=== PATIENT | male | born 1995 | race Caucasian/White ===

== ENCOUNTER 2019-12-04 12:08 | Emergency (ER) | payer SELFPAY ==
[2019-12-04 12:16] VITALS: BP 129/76; PULSE 60; TEMP 37; O2SAT 99
--- NOTE | 2019-12-04 12:28 | ED.GENADUL_ITS ---
Discharge Plan Disposition Patient Disposition: HOME Condition: Stable Discharge Details Chief Complaint: Laceration Clinical Impression: Finger laceration, Crush injury Primary Care Provider: Nanci Meza V ED Provider: Chelsey Sutherland Home Meds and New Rx's Prescriptions: New cephalexin [Keflex] 500 mg capsule 500 mg PO TID 5 Days Qty: 15 RF: 0 Discharge Instructions Instructions: Finger Laceration (ED) Additional Instructions: Take the antibiotics until finished. Keep wound clean and dry. Cover wound with bandage if risk of contamination. Otherwise you can keep the wound open to air if resting at home to allow edges to dry and heal. Return to the emergency department in 7 days for suture removal. Return to the emergency department anytime if you develop any increased pain, redness, swelling, fever, chills or body aches. Discharge Data Discharge Date/Time-TO BE ENTERED AT DEPARTURE: 12/04/19 14:43 Discharge Physician: Chelsey Sutherland Medical Decision Making 24-year-old male presents with left hand crush injury to left second through fifth fingers after caught in machine belt while at work just prior to arrival. Patient tearful and appears very uncomfortable. He has superficial and small deep lacerations to left second through fifth fingers. No bony deformity. Neurovascular intact. Will refer for x-ray and give a dose of ibuprofen and oxycodone. Boostrix ordered. X-ray negative for acute findings. Left second finger and left fifth finger lacerations both closed with 3 nylon 5-0 sutures. Wounds dressed with tube gauze dressing. Band-Aids applied to other superficial lacerations. Considering multiple lacerations and mechanism of injury, will treat with prophylactic antibiotics. Advised to return to the ED in 7 days for suture removal. Usual and customary return precautions given prior to discharge. Medical Records Medical records reviewed: Yes I reviewed the patient's medical records. Imaging Data Radiologic Study: Radiologist's impression: XR HAND LT COMPLETE CLINICAL HISTORY: hand crushed in belt at work, lacerations 05/30. TECHNIQUE: 2D digital imaging was performed. COMPARISON: No exams were available for comparison FINDINGS: BONES: No acute fracture is present. No bony destructive lesion is seen. JOINTS: No dislocation present. SOFT TISSUE: Normal. IMPRESSION: Unremarkable radiographs of the left hand. HPI General Mode of arrival: ambulatory . Date/Time Provider Initiated Documentation: 12/04/19 12:20 . Limitations to Documentation: no limitations . Information obtained by: patient . HPI Narrative: Patient is a 24-year-old male who presents with left hand crush injury after hand was caught in a machine belt at work just prior to arrival. He has lacerations to his left second through fifth fingers where the crush injury occurred. Denies any thumb pain or injury. Denies any wrist pain or injury. He is unsure of his tetanus status. Related Data Home Medications Medication Instructions Recorded Confirmed cephalexin [Keflex] 500 mg PO TID 5 Days #15 cap 12/04/19 Previous Rx's Medication Instructions Recorded cephalexin [Keflex] 500 mg PO TID 5 Days #15 cap 12/04/19 Allergies Allergy/AdvReac Type Severity Reaction Status Date / Time No Known Allergies Allergy Unverified 12/04/19 12:20 General Stated Complaint: Laceration KUSH: 3 Review of Systems All systems reviewed & are unremarkable except as noted in HPI and below PFSH Medical History (Updated 12/04/19 @ 14:20 by Chelsey Sutherland DO) No significant past medical history (Acute) Surgical History (Updated 12/04/19 @ 12:40 by Chelsey Sutherland DO) No significant past surgical history (Acute) Social History Smoking/Tobacco Use Status: Former Tobacco Use Drug use: Occasionally Do you feel safe at home: Yes Do you feel safe in your relationship?: Yes Exam Const General: cooperative, healthy appearing, uncomfortable and no acute distress HENMT Head: normal to inspection Mouth: oral mucosae normal Eyes General: appearance normal, both eyes and all related structures Neck Neck: normal visual inspection Resp Effort & Inspection: normal respiratory effort and able to speak in complete sentences Cardio Rate: regular rate Skin General skin exam: no rashes or lesions noted Neuro General: patient alert, patient awake and patient oriented x3 Motor: muscle tone normal throughout Extrem General: capillary refill normal Hand/finger images: 1. 2cm straight laceration through dermis 2. 4mm straight superficial laceration 3. 1.5cm c shaped thin flap laceration. 4. 1mm skin tear Other: Limited range of motion due to pain in left hand, more specifically left second through fifth fingers. No obvious bony deformity. Psych Appearance: grossly normal Affect: normal affect Course Vital Signs Vital signs: Vital Signs Temperature 98.6 F 12/04/19 12:16 Pulse 60 12/04/19 12:16 Blood Pressure 129/76 12/04/19 12:16 Pulse Oximetry 99 12/04/19 12:16 Temperature 98.6 F 12/04/19 12:16 Temperature Source Temporal Artery Scan 12/04/19 12:16 Pulse 60 12/04/19 12:16 Respiratory Effort Non-Labored 12/04/19 12:18 Blood Pressure 129/76 12/04/19 12:16 Blood Pressure Position Sitting 12/04/19 12:16 Pulse Oximetry 99 12/04/19 12:16 Oxygen Delivery Method Room Air 12/04/19 12:16 Oxygen Flow Rate 0 12/04/19 12:16 Pain Level 8 12/04/19 12:16 Procedures Laceration Laceration 1: Site: hand (2nd finger) Side (If applicable): left Size (cm): 2 Description: linear Depth: simple, single layer Local Anesthetic: Lidocaine 1% (digital block) Amount of anesthesia used (mL): 3 Pre-repair: wound explored, irrigated extensively and deep structures intact Skin layer closed with: nylon Size (cm): 5-0 Number of sutures: 3 Technique: simple, interrupted Laceration 2: Site: hand (5th finger) Side (If applicable): left Size (cm): 1.5 Description: flap Depth: simple, single layer Local Anesthetic: Lidocaine 1% (digital block) Amount of anesthesia used (mL): 3 Pre-repair: wound explored, irrigated extensively and deep structures intact Skin layer closed with: nylon Size (cm): 5-0 Number of sutures: 3 Technique: simple, interrupted
--- NOTE | 2019-12-04 12:30 | DI.RAD_ITS ---
EXAM: XR HAND LT COMPLETE CLINICAL HISTORY: hand crushed in belt at work, lacerations /. TECHNIQUE: 2D digital imaging was performed. COMPARISON: No exams were available for comparison FINDINGS: BONES: No acute fracture is present. No bony destructive lesion is seen. JOINTS: No dislocation present. SOFT TISSUE: Normal. IMPRESSION: Unremarkable radiographs of the left hand. DATA REPOSITORY: RADIATION DOSE DELIVERED:
[2019-12-04] MEDS: Ibuprofen 600 MG TAB PO (12:43)
[2019-12-04] MEDS: oxyCODONE 5 MG TAB PO (12:44)
[2019-12-04] MEDS: Cephalexin 500 MG CAP PO (14:31)
[2019-12-04 14:47] VITALS: BP 116/69; PULSE 52; RESP 14; TEMP 36.5; O2SAT 100
== END 2019-12-04 14:43 | disposition home or self-care (01) ==
PROVIDERS: Emergency Provider Physician Assistant; PCP Pediatrics
DX: S67.22XA Crushing injury of left hand, initial encounter (principal); S61.211A Laceration without foreign body of left index finger without damage to nail, initial encounter; S61.217A Laceration without foreign body of left little finger without damage to nail, initial encounter; S61.213A Laceration without foreign body of left middle finger without damage to nail, initial encounter; S61.215A Laceration without foreign body of left ring finger without damage to nail, initial encounter; W31.89XA Contact with other specified machinery, initial encounter; Y99.0 Civilian activity done for income or pay
CPT/HCPCS: 12002; 90471; 73130

== ENCOUNTER 2020-03-09 12:43 | Emergency (ER) | payer SELFPAY ==
[2020-03-09] VITALS (24 sets, daily range): BP systolic 107–130; BP diastolic 42–90; PULSE 50–98; RESP 13–30; TEMP 36.7; O2SAT 80–100
--- NOTE | 2020-03-09 12:45 | DI.RAD_ITS ---
EXAM: XR SHOULDER RT COMPLETE 2+V CLINICAL HISTORY: dislocation TECHNIQUE: COMPARISON: CR,XR XR SHOULDER RT COMP POST REDUC from 03/09/2020 FINDINGS: Five views were obtained initially. These show an an anterior dislocation of the humeral head from t he glenoid fossa. No definite fracture seen. Two post reduction views were obtained and show reduction of the dislocation. No fracture identified on this limited series. IMPRESSION: RADIATION DOSE DELIVERED: Total DLP
--- NOTE | 2020-03-09 13:07 | W.ED.GENAD ---
Discharge Plan Disposition Patient Disposition: HOME Condition: Good Discharge Details Clinical Impression: Dislocation of shoulder, right, closed Primary Care Provider: Nanci Meza V ED Provider: Flip Toth Discharge Instructions Instructions: Shoulder Dislocation (ED) Additional Instructions: Your shoulder has now been put back into place. Please keep the sling on for the next few days as the tendons and ligaments heal. Take Tylenol and Motrin as needed for pain. If you develop a return of or persistent numbness or tingling you may need to be evaluated by an veterinary milk specialist. Please follow-up closely with your primary care provider. If you notice any worsening of your symptoms, or any new symptoms such as vomiting, diarrhea, fever, chills, shortness of breath, chest pain, numbness, weakness, or fainting , please return immediately to the emergency department for reevaluation. Please follow up with your primary care provider as soon as possible for reassessment and reevaluation. As always, it was a pleasure participating in your medical care today. Referrals: Nanci Meza MD [Primary Care Provider] - Medical Decision Making 22-year-old male with a past medical history of previous right shoulder dislocations, he is right-hand dominant, presents today for evaluation of right shoulder dislocation. Patient states that he was closing a door when he felt it pop out. He denies any trauma. Immediately after which she developed some numbness and tingling in his hand and arm. Pain in his right shoulder. He denies any trauma otherwise. He states that he has dislocated his shoulders a few times in the past. He denies any other complaints or modifying factors. No blood thinner use. Physical exam demonstrates a notably dislocated right shoulder. Will get x-ray to make sure there is no evidence of fracture or other significant abnormality. Suspect anterior shoulder dislocation. Did try initial manipulation without sedation and this is not tolerated. Will sedate with propofol, and reduce. Patient was sedated, shoulder reduced without complication, repeat neurovascular exam totally normal, excellent range of motion. Patient tolerated procedure very well. Patient will be discharged home with sling and close follow-up with PCP. I have extensively reviewed the treatment plan and discharge instructions with the patient. I have addressed all patient concerns at this time. The patient was made aware of what symptoms to monitor for that would warrant a return to the emergency department. Discussed the plan with the patient, they demonstrate verbal understanding and agreement with our assessment and plan at this time. FINDINGS: Bones/joints: Relocation of normal alignment of the right glenohumeral joint. No fracture identified. Soft tissues: Normal. IMPRESSION: Relocation of alignment of right glenohumeral joint. Thank you for allowing us to participate in the care of your patient. Dictated and Authenticated by: April Clark MD 03/09/2020 2:04 PM Eastern Time ([place] & [place]) FINDINGS: Bones/joints: Anteroinferior dislocation the right humerus at the glenohumeral. No fracture is identified but bone overlap obscures detail. Soft tissues: Normal. IMPRESSION: Anteroinferior dislocation of the right humerus at the glenohumeral joint. Thank you for allowing us to participate in the care of your patient. Dictated and Authenticated by: April Clark MD 03/09/2020 1:27 PM Eastern Time ([place] & [place]) HPI General Date/Time Provider Initiated Documentation: 03/09/20 12:46. HPI Narrative: 22-year-old male with a past medical history of previous right shoulder dislocations, he is right-hand dominant, presents today for evaluation of right shoulder dislocation. Patient states that he was closing a door when he felt it pop out. He denies any trauma. Immediately after which she developed some numbness and tingling in his hand and arm. Pain in his right shoulder. He denies any trauma otherwise. He states that he has dislocated his shoulders a few times in the past. He denies any other complaints or modifying factors. No blood thinner use. Related Data Allergies Allergy/AdvReac Type Severity Reaction Status Date / Time No Known Allergies Allergy Unverified 03/09/20 12:57 General Stated Complaint: Orthopedic KUSH: 3 Review of Systems All systems reviewed & are unremarkable except as noted in HPI and below PFSH Medical History No significant past medical history Surgical History No significant past surgical history Social History Smoking/Tobacco Use Status: Former Tobacco Use Smoking risk assessment performed?: Yes Alcohol Intake: current Alcohol Intake frequency: 0-2 drinks per day Drug use: Occasionally Do you feel safe at home: Yes Do you feel safe in your relationship?: Yes Exam Narrative Exam Narrative: 1.Const: Well-nourished, Well-developed, appearing stated age 2.Eyes: PERRL, no conjunctival injection, and symmetrical lids. 3.ENT: Atraumatic external nose and ears. Moist MM. Neck: Symmetric, trachea midline, No thyromegaly. 4.CVS: +S1/S2, No murmurs or gallops. Peripheral pulses 2+ and equal in all extremities. Brisk capillary refill in all extremities. 5.RESP: Unlabored respiratory effort. Clear to auscultation bilaterally. No wheezes rales or rhonchi 6.GI: Soft, Nontender/Nondistended, No hepatosplenomegaly. No guarding or rebound. 7.MSK: Right shoulder demonstrates clear and apparent dislocation, suspect anterior dislocation. Sensation present but decreased in the hand forearm and proximal right upper extremity. Pulses intact, brisk capillary refill. Mild pain with movement of the elbow secondary to referred pain in the shoulder. 8.Skin: Warm, Dry. No rashes or lesions. 9.Neuro: dude wrangler II-XII grossly intact. Sensation grossly intact, no focal neurologic deficits. 10.Psych: (AAO) x3. Appropriate mood and affect Course Vital Signs Vital signs: Vital Signs Temperature 36.7 C 03/09/20 12:52 Pulse 98 H 03/09/20 12:52 Respiratory Rate 18 03/09/20 12:52 Blood Pressure 116/69 03/09/20 12:52 Pulse Oximetry 98 03/09/20 12:52 Temperature 36.7 C 03/09/20 12:52 Temperature Source Temporal Artery Scan 03/09/20 12:52 Pulse 98 H 03/09/20 12:52 Respiratory Rate 18 03/09/20 12:52 Respiratory Effort 03/09/20 12:55 Blood Pressure 116/69 03/09/20 12:52 Blood Pressure Position Sitting 03/09/20 12:52 Pulse Oximetry 98 03/09/20 12:52 Oxygen Delivery Method Room Air 03/09/20 12:52 Oxygen Flow Rate 0 03/09/20 12:52 Pain Level 8 03/09/20 12:52 Procedures Orthopedic Joint Reduction Joint #1: Time Out Performed: Yes Side: right Joint Reduction Location: shoulder Analgesia: procedural sedation Shoulder Technique Used (if applicable): traction/counter-traction Post-reduction neuro exam: intact Post-reduction vascular: intact Post Reduction X-Ray Obtained: Yes Post Reduction X-Ray Results: reduced Splint Applied: Yes Patient Tolerated Procedure: well Additional Comments: Tingling completely resolved. Pain resolved, excellent range of motion normal strength. Procedural Sedation Indication: fracture/dislocation reduction ASA Class: I Time of Last PO Intake: 08:19 Preparation: coordinate measuring machine technician applied, pulse oximeter, capnometry used, supplemental O2 applied, suction/airway equipment at bedside and IV secured IV Propofol dose (mg): 160 Patient Tolerated Procedure: well Complications: none
[2020-03-09] MEDS: Normal Saline 1,000 ML 1000 ML IV (13:25)
[2020-03-09] MEDS: Propofol 200 MG/20 ML VIAL 100 MG IVP (13:26)
--- NOTE | 2020-03-09 13:27 | DI.VRAD_ITS ---
PROCEDURE INFORMATION: Exam: XR Right Shoulder Exam date and time: 03/09/2020 1:22 PM Age: 24 years old Clinical indication: Other: Dislocation TECHNIQUE: Imaging protocol: XR Right shoulder. Views: 2 or more views. COMPARISON: No relevant prior studies available. FINDINGS: Bones/joints: Anteroinferior dislocation the right humerus at the glenohumeral. No fracture is identified but bone overlap obscures detail. Soft tissues: Normal. IMPRESSION: Anteroinferior dislocation of the right humerus at the glenohumeral joint. Dictated and Authenticated by: April Clark MD. Ordering:ROB Castelan MD
--- NOTE | 2020-03-09 13:34 | NUR.NOTE ---
Nursing Note: extra 60 mg Propofol pushed by Dr. Toth to acheive appropriate sendation for procedure. This happened directly after first dose of 100 mg. Total given 160 mg.
--- NOTE | 2020-03-09 13:58 | NUR.NOTE ---
pt awake and alert. vs stable. texting on phone. + cms distal to rt shoulder injury. sling in place. post reduction x-ray obtained. :
--- NOTE | 2020-03-09 14:04 | DI.VRAD_ITS ---
PROCEDURE INFORMATION: Exam: XR Right Shoulder Exam date and time: 03/09/2020 1:50 PM Age: 24 years old Clinical indication: Pain; Shoulder; Right; Additional info: Dislocation TECHNIQUE: Imaging protocol: XR Right shoulder. Views: 2 or more views. COMPARISON: CR XR SHOULDER RT COMPLETE 2+V 03/09/2020 1:10 PM FINDINGS: Bones/joints: Relocation of normal alignment of the right glenohumeral joint. No fracture identified. Soft tissues: Normal. IMPRESSION: Relocation of alignment of right glenohumeral joint. Dictated and Authenticated by: April Clark MD. Ordering:ROB Castelan MD
== END 2020-03-09 14:19 | disposition home or self-care (01) ==
PROVIDERS: Emergency Provider Student in an Organized Health Care Education/Training Program; PCP Pediatrics
DX: S43.014A Anterior dislocation of right humerus, initial encounter (principal); X50.9XXA Other and unspecified overexertion or strenuous movements or postures, initial encounter
CPT/HCPCS: 23650; 73030; 96361; 96374; 99282; 99281; J2704; L3650